=== PATIENT | female | born 2000 | race Caucasian/White ===

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

== ENCOUNTER → 2018-04-03 | Outpatient (CLI) | payer OTHER ==
[2018-04-03 21:42] LABS: HCG, SERUM QUANTITATIVE < 1.0 MIU/ML
== END ==
LOC: M LAB 20:31
DX: O99.519 Diseases of the respiratory system complicating pregnancy, unspecified trimester (principal); Z3A.00 Weeks of gestation of pregnancy not specified
CPT/HCPCS: 84702

== ENCOUNTER → 2018-05-13 | Outpatient (REF) | payer OTHER ==
[~2018-05-13] MED LIST: ZOFR4TAB14 PO
[2018-05-13 22:13] LABS: URINE PREG TEST NEGATIVE (NEGATIVE)
== END ==
LOC: M LAB REF 10:10
PROVIDERS: ATTEND Physician Assistant
DX: R11.2 Nausea with vomiting, unspecified (principal)

== ENCOUNTER 2018-05-17 03:51 | Emergency (ER) | payer OTHER ==
[~2018-05-17] VITALS: Ht 160 cm; Wt 82.6 kg
[2018-05-17 04:38] LABS: HEMATOCRIT 42.3 % (36.0-47.0); HEMOGLOBIN 13.8 g/dl (12.0-15.5); MEAN CORPUSCULAR HEMOGLOBIN 29.1 pg (27.0-33.0); MEAN CORPUSCULAR HGB CONC 32.6 g/dl (32.0-36.5); MEAN CORPUSCULAR VOLUME 89.2 fl (80.0-96.0); PLATELET COUNT, AUTOMATED 319 10^3/uL (150-450); RED BLOOD COUNT 4.74 10^6/uL (4.00-5.40); WHITE BLOOD COUNT 12.6 10^3/uL (4.0-10.0)
[2018-05-17 04:50] LABS: HCG, SERUM QUALITATIVE NEGATIVE (NEGATIVE)
[2018-05-17 04:58] LABS: ALBUMIN 3.7 GM/DL (3.2-5.2); ALT/SGPT 17 U/L (12-78); BILIRUBIN,DIRECT < 0.1 MG/DL (0.0-0.2); BILIRUBIN,TOTAL 0.3 MG/DL (0.2-1.0); BLOOD UREA NITROGEN 4 MG/DL (7-18); CALCIUM LEVEL 8.7 MG/DL (8.5-10.1); CARBON DIOXIDE LEVEL 25 MEQ/L (21-32); CHLORIDE LEVEL 108 MEQ/L (98-107); CREATININE FOR GFR 0.79 MG/DL (0.55-1.30); GLUCOSE, FASTING 100 MG/DL (70-100); LIPASE 269 U/L (73-393); POTASSIUM SERUM 3.8 MEQ/L (3.5-5.1); SODIUM LEVEL 141 MEQ/L (136-145); TOTAL PROTEIN 7.6 GM/DL (6.4-8.2)
[2018-05-17 05:00] LABS: EOSINOPHILS 1 % (0-5); LYMPHOCYTES 40 % (16-52); MONOCYTES 3 % (0-8); NEUTROPHILS 56 % (35-75)
[2018-05-17] MEDS ORDERED: NS 1,000 ML IV ONE (05:00)
[2018-05-17 05:01] LABS: PLATELET ESTIMATE NORMAL (NORMAL)
[2018-05-17] MEDS ORDERED: MORPHINE 4 MG/ML 1ML VIAL/SYRINGE (J2270) IV ONE (05:15)
[2018-05-17] MEDS ORDERED: METOCLOPRAMIDE INJ 10MG/2ML VIAL (J2765) IV ONE (05:15)
[2018-05-17] MEDS ORDERED: GASTROGRAFIN SOLUTION 30ML (Q9963) As Ordered ONE (05:24)
[2018-05-17] MEDS: GASTROGRAFIN SOLUTION 30ML PO SCH ×2 (05:30→06:00)
[2018-05-17 05:44] LABS: APPEARANCE, URINE HAZY (CLEAR); BACTERIA, URINE AUTO NEGATIVE (NEGATIVE); BILIRUBIN, URINE AUTO NEGATIVE (NEGATIVE); BLOOD, URINE BLOOD NEGATIVE (NEGATIVE); COLOR, URINE YELLOW (YELLOW); GLUCOSE, URINE (UA) AUTO NEGATIVE (NEGATIVE); KETONE, URINE AUTO NEGATIVE (NEGATIVE); LEUKOCYTE ESTERASE, URINE AUTO NEGATIVE (NEGATIVE); MUCUS, URINE SMALL (NEGATIVE); NITRITE, URINE AUTO NEGATIVE (NEGATIVE); PROTEIN, URINE AUTO NEGATIVE (NEGATIVE); RBC, URINE AUTO 1 /HPF (0-3); SPECIFIC GRAVITY URINE AUTO 1.017 (1.002-1.035); SQUAMOUS EPITHELIAL CELL UR AU 1 /HPF (0-6); WBC, URINE AUTO 5 /HPF (0-3)
[2018-05-17] MEDS ORDERED: ISOVUE-370 76% 100ML VIAL (Q9967) As Ordered ONE (06:35)
--- NOTE | 2018-05-17 07:58 | REPVR ---
EXAM: CT Abdomen and Pelvis With Contrast EXAM DATE/TIME: 05/17/2018 7:00 AM CLINICAL HISTORY: 17 years old, female; Pain; Abdominal pain TECHNIQUE: Axial computed tomography images of the abdomen and pelvis with intravenous contrast. All CT scans at this facility use at least one of these dose optimization techniques: automated exposure control; mA and/or kV adjustment per patient size (includes targeted exams where dose is matched to clinical indication); or iterative reconstruction. Coronal and sagittal reformatted images were created and reviewed. CONTRAST: 100 ml of iso 370 administered intravenously. COMPARISON: No relevant prior studies available. FINDINGS: Lower thorax: Bibasilar atelectasis. Mild bibasilar atelectasis. ABDOMEN: Liver: Mild diffuse fatty infiltration of liver. Gallbladder and bile ducts: Normal. No calcified stones. No ductal dilation. Pancreas: Normal. No ductal dilation. Spleen: Normal. No splenomegaly. Adrenals: Normal. No mass. Kidneys and ureters: Normal. No hydronephrosis. Stomach and bowel: Sigmoid and descending colon are not well distended and appears to be thickened likely secondary to nondistention. No bowel dilatation or obstruction. Appendix: Normal appendix. PELVIS: Bladder: Unremarkable as visualized. Reproductive: Retroverted uterus. ABDOMEN and PELVIS: Intraperitoneal space: Small free fluid in the pelvis. Bones/joints: No acute fracture. No dislocation. Soft tissues: Unremarkable. Vasculature: Normal. No abdominal aortic aneurysm. Lymph nodes: Normal. No enlarged lymph nodes. IMPRESSION: Mild fatty filtration of liver. Normal appendix. Small free fluid in the pelvis likely physiologic. Electronically signed by: Viola Otto On 05/17/2018 07:57:59 AM
[2018-05-17 08:24] VITALS: BP 113/63
== END 2018-05-17 08:24 | disposition home or self-care (01) ==
LOC: M ED 03:51
DX: R10.9 Unspecified abdominal pain (principal); F17.200 Nicotine dependence, unspecified, uncomplicated
CPT/HCPCS: 36415; 74177; 80048; 80076; 81001; 83690; 84703; 85025; 87086; 96374; 96375; 99284; J2270; J2765; Q9967

== ENCOUNTER 2018-07-22 19:58 | Emergency (ER) | payer OTHER ==
[~2018-07-22] VITALS: Ht 157.5 cm; Wt 85.9 kg
[2018-07-22] MEDS ORDERED: metroNIDAZOLE (FLAGYL) 500 MG TAB PO ONE (21:45)
[2018-07-22] MEDS ORDERED: cefTRIAXone SOD 250 MG VIAL (J0696) IM ONE (21:45)
[2018-07-22] MEDS ORDERED: LIDOCAINE 1% SDV 5 ML VIAL DILUENT ONE (21:45)
[2018-07-22] MEDS ORDERED: AZITHROMYCIN 250 MG TAB PO ONE (21:45)
[2018-07-22 22:20] VITALS: BP 114/66
[2018-07-22 23:45] LABS: CHLAMYDIA DNA AMPLIFICATION NEGATIVE (NEGATIVE); GC DNA AMPLIFICATION NEGATIVE (NEGATIVE)
== END 2018-07-22 22:22 | disposition home or self-care (01) ==
LOC: M ED 19:58
DX: Z20.2 Contact with and (suspected) exposure to infections with a predominantly sexual mode of transmission (principal); F17.200 Nicotine dependence, unspecified, uncomplicated
CPT/HCPCS: 81025; 87661; 96372; 99284; J0696

== ENCOUNTER → 2019-03-05 | Outpatient (REF) | payer OTHER ==
[2019-03-05 16:52] LABS: URINE PREG TEST POSITIVE (NEGATIVE)
== END ==
LOC: M LAB REF 09:03
PROVIDERS: ATTEND Physician Assistant Medical
DX: Z32.01 Encounter for pregnancy test, result positive (principal)

== ENCOUNTER → 2019-05-09 | Outpatient (CLI) | payer OTHER ==
[2019-05-09 16:54] LABS: BASO % 0.3 % (0.0-1.0); EOS # 0.1 10^3/uL (0.0-0.5); EOS % 0.6 % (0.0-3.0); HEMOGLOBIN 12.7 g/dl (12.0-15.5); LYMPH % 21.1 % (24.0-44.0); MEAN CORPUSCULAR HEMOGLOBIN 29.1 pg (27.0-33.0); MEAN CORPUSCULAR HGB CONC 32.6 g/dl (32.0-36.5); MEAN CORPUSCULAR VOLUME 89.4 fl (80.0-96.0); MONO # 0.5 10^3/uL (0.0-0.8); MONO % 3.6 % (0.0-5.0); NEUTROPHILS # 10.3 10^3/uL (1.5-8.5); NEUTROPHILS % 73.9 % (36.0-66.0); PLATELET COUNT, AUTOMATED 303 10^3/uL (150-450); RED BLOOD COUNT 4.36 10^6/uL (4.00-5.40)
[2019-05-09 18:14] LABS: CHLAMYDIA DNA AMPLIFICATION NEGATIVE (NEGATIVE); GC DNA AMPLIFICATION NEGATIVE (NEGATIVE)
[2019-05-10 10:35] LABS: HIV 1&2 SCREEN CENTAUR NEGATIVE (NEGATIVE); RUBELLA IgG QUALITATIVE IMMUNE (IMMUNE)
[2019-05-13 10:52] LABS: HEPATITIS B SURFACE ANTIGEN NEGATIVE (NEGATIVE); HEPATITIS C VIRUS ABY INDEX 0.2 INDEX (<0.8)
== END ==
LOC: M LAB 15:18
PROVIDERS: ATTEND Advanced Practice Midwife
DX: Z34.80 Encounter for supervision of other normal pregnancy, unspecified trimester (principal); Z3A.11 11 weeks gestation of pregnancy

== ENCOUNTER → 2019-06-17 | Outpatient (CLI) | payer OTHER ==
[~2019-06-17] MED LIST changes: +M-NA1TAB; +ONDA4TAB6
== END ==
LOC: M LDO 22:00
PROVIDERS: ATTEND Advanced Practice Midwife
DX: O21.9 Vomiting of pregnancy, unspecified (principal); Z20.89 Contact with and (suspected) exposure to other communicable diseases; Z3A.20 20 weeks gestation of pregnancy

== ENCOUNTER → 2019-06-17 | Outpatient (CLI) | payer OTHER ==
--- NOTE | 2019-06-17 12:28 | REP ---
Obstetric ultrasound for anatomy: There is a single intrauterine gestation in a vertex presentation. There is movement and cardiac activity. The heart rate is 150 beats per minute. The placenta is anterior. There is no placenta previa or abruptio. The placenta is grade zero. The amniotic fluid volume subjectively appears to be normal. The cervix measures 3.7 cm length. Gestational age by today's ultrasound is 20 weeks 3 days/MERRY 11/01/2019. Gestational age by LMP is 20 weeks 6 days/MERRY 10/29/2019. weight is 306 grams/0 pounds, 13 ounces. This is the 32nd percentile for 20-week 6 days. The following anatomic structures are identified and are unremarkable: Cranium, choroid plexus, cavum septum pellucidum, posterior fossa, upper lip, lungs, four-chamber heart, left cardiac ventricular outflow tract, diaphragm, stomach, cord insertion, three-vessel cord, kidneys, bladder, spine and upper lower extremities. Suboptimally demonstrated because of position are the facial profile and the cardiac right ventricular outflow tract. A followup study dedicated to these structures might be considered. Electronically Signed by Luis Alfredo Santizo MD 06/17/2019 12:20 P
== END ==
LOC: M RAD 11:28
PROVIDERS: ATTEND Specialist
DX: Z34.92 Encounter for supervision of normal pregnancy, unspecified, second trimester (principal); Z3A.20 20 weeks gestation of pregnancy

== ENCOUNTER → 2019-07-27 | Outpatient (CLI) | payer OTHER ==
--- NOTE | 2019-07-27 18:01 | REP ---
Clinical: Anatomical evaluation. Comparison: 06/17/2019 . Findings: Examination demonstrates a single live intrauterine in variable presentation. motion is identified by technologist. Placenta is noted anterior and grade I without evidence for placenta previa or abruption. Amniotic fluid volume is normal. Cervix measures 3.1 cm in length and appears closed. No evidence for nuchal cord. Gestational age by LMP 26 weeks 4 days with MERRY 10/29/2019 . Gestational age by current measurements 25 weeks 5 days with MERRY 11/04/2019 . FHR equals 146 beats per minute. Estimated weight 808 grams ( 14th percentile). Anatomical assessment demonstrates normal structures including cranium, facial features, lungs, four-chamber heart/ventricular outflow tracts, diaphragm, stomach, cord insertion/three-vessel cord, and kidneys/bladder. Impression: Single live intrauterine in variable presentation demonstrating appropriate interval growth. In conjunction with prior examination anatomical assessment is complete and normal. Electronically Signed by Jamison Donovan MD 07/27/2019 05:53 P
== END ==
LOC: M WHC 11:08
PROVIDERS: ATTEND Obstetrics & Gynecology
DX: Z34.02 Encounter for supervision of normal first pregnancy, second trimester (principal); Z3A.25 25 weeks gestation of pregnancy

== ENCOUNTER → 2019-08-09 | Outpatient (CLI) | payer OTHER ==
--- NOTE | 2019-08-09 12:13 | REP ---
OB ULTRASOUND: Real-time sonographic evaluation of the gravid uterus performed. There is a single living intrauterine gestation. The estimated gestational age is 28 weeks 3 days, with EDC 10/29/2019. Today's measurements indicate appropriate growth. Biometry and Growth: BPD 73 mm = 29 weeks 2 days, 69th percentile HC 260 mm = 28 weeks 2 days, 47th percentile AC 226 mm = 27 weeks 0 days, 21st percentile FL 51 mm = 27 weeks 3 days, 30th percentile HC/AC ratio 1.15 within normal range of 0.99 to 1.18. Estimated weight 1072 grams at the 20th percentile. Cervical length: Closed and measures 4.1 cm in length. heart rate: 146 beats per minute. position: Vertex. Placenta: Anterior and grade 2 with no previa or abruption. Amniotic fluid: Within normal limits. AVINASH 15.6 within normal range of 9.3 to 22.9. S/D ratio in the mid umbilical artery is 2.36, normal range is 2.56 to 3.80. RI: 0.58, normal range is 0.59 to 0.75. Visualized anatomy today includes four-chamber heart, stomach, cord insertion, three-vessel cord, kidneys and bladder, which are grossly unremarkable.
== END ==
LOC: M WHC 10:39
PROVIDERS: ATTEND Advanced Practice Midwife
DX: Z34.92 Encounter for supervision of normal pregnancy, unspecified, second trimester (principal)

== ENCOUNTER → 2019-08-09 | Outpatient (REF) | payer OTHER ==
[2019-08-09 17:43] LABS: HEMATOCRIT 37.5 % (36.0-47.0); HEMOGLOBIN 12.3 g/dl (12.0-15.5); MEAN CORPUSCULAR HEMOGLOBIN 30.9 pg (27.0-33.0); MEAN CORPUSCULAR HGB CONC 32.8 g/dl (32.0-36.5); MEAN CORPUSCULAR VOLUME 94.2 fl (80.0-96.0); PLATELET COUNT, AUTOMATED 315 10^3/uL (150-450); RED BLOOD COUNT 3.98 10^6/uL (4.00-5.40); WHITE BLOOD COUNT 15.8 10^3/uL (4.0-10.0)
== END ==
LOC: M PLALAB 11:27
PROVIDERS: ATTEND Obstetrics & Gynecology
DX: Z34.82 Encounter for supervision of other normal pregnancy, second trimester (principal); Z3A.24 24 weeks gestation of pregnancy

== ENCOUNTER → 2019-09-29 | Outpatient (REF) | payer OTHER | LOC: M SFHCWAGY 16:57 | PROVIDERS: ATTEND Advanced Practice Midwife | DX: O99.333 Smoking (tobacco) complicating pregnancy, third trimester (principal) ==

== ENCOUNTER 2019-10-11 12:39 | Inpatient (IN) | payer OTHER ==
[~2019-10-11] VITALS: Ht 157.5 cm; Wt 91.6 kg
[2019-10-11] VITALS (10 sets, daily range): BP systolic 109–133; BP diastolic 61–84
[2019-10-11 13:55] LABS: HEMATOCRIT 39.8 % (36.0-47.0); HEMOGLOBIN 13.2 g/dl (12.0-15.5); MEAN CORPUSCULAR HEMOGLOBIN 29.6 pg (27.0-33.0); MEAN CORPUSCULAR HGB CONC 33.2 g/dl (32.0-36.5); MEAN CORPUSCULAR VOLUME 89.2 fl (80.0-96.0); PLATELET COUNT, AUTOMATED 287 10^3/uL (150-450); RED BLOOD COUNT 4.46 10^6/uL (4.00-5.40); WHITE BLOOD COUNT 12.9 10^3/uL (4.0-10.0)
[2019-10-11 14:26] LABS: ALT/SGPT 12 U/L (12-78); BILIRUBIN,TOTAL 0.3 MG/DL (0.2-1.0); CREATININE FOR GFR 0.47 MG/DL (0.55-1.30); GLOMERULAR FILTRATION RATE > 60.0 (>60); LDH LACTATE DEHYDROGENASE 157 U/L (84-246)
[2019-10-11 14:38] LABS: CREATININE,RANDOM URINE 17.8 MG/DL; TOTAL PROTEIN,RANDOM URINE 11.5 MG/DL (0.0-12.0)
[2019-10-11] MEDS: miSOPROStol 50 MCG 1/2 TAB (S0191) SL SCH ×3 (15:09→23:27)
[2019-10-12] VITALS (37 sets, daily range): BP systolic 121–163; BP diastolic 62–110
[2019-10-12] MEDS: miSOPROStol 50 MCG 1/2 TAB (S0191) SL SCH (03:25)
[2019-10-12] MEDS ORDERED: OXYTOCIN DRIP 30 UNITS in IV 1 EA IV SCH ×2 (08:30→17:32)
[2019-10-12] MEDS: LR 1,000 ML IV SCH ×2 (08:50→15:16)
[2019-10-12] MEDS ORDERED: FENTANYL 2MCG/ML ROPIVACAINE 0.2% IN 0.9% NACL 100ML IVBAG As Ordered ONE (15:10)
[2019-10-12] MEDS ORDERED: EPIDURAL COMMENT XX SCH (16:30)
[2019-10-12] MEDS ORDERED: REFRIGERATOR IV KEYS XX PRN (16:30)
[2019-10-12] MEDS ORDERED: FENTANYL/ROPIVACAINE/NACL BAG 100 ML EPIDURAL SCH (16:30)
[2019-10-12] MEDS ORDERED: diphenhydrAMINE 50MG/ML VIAL (J1200) IV PRN (16:30)
[2019-10-12] MEDS ORDERED: LACTATED RINGER'S 1000 ML IV PRN (16:30)
[2019-10-12] MEDS ORDERED: ePHEDrine SULFATE 25 MG/5 ML(5MG/ML) SYRINGE IV PRN (16:30)
[2019-10-12] MEDS ORDERED: NALOXONE INJ 0.4MG/1ML VIAL (J2310 PER 1MG) IV PRN (16:30)
[2019-10-12] MEDS ORDERED: EPIDURAL/PCA KEYS XX PRN (16:30)
[2019-10-12] MEDS ORDERED: ONDANSETRON 4MG/2ML VIAL IV PRN (16:30)
[2019-10-12] MEDS ORDERED: IBUPROFEN 800 MG TAB PO PRN (17:45)
[2019-10-12] MEDS ORDERED: DIBUCAINE 1% OINTMENT 30GM TOP PRN (17:45)
[2019-10-12] MEDS ORDERED: ACETAMINOPHEN 500 MG TAB PO PRN (17:45)
[2019-10-12] MEDS ORDERED: MEASLES,MUMPS,RUBELLA VACCINE INJ (MMR-II) (90707) SC SCH (17:45)
[2019-10-12] MEDS ORDERED: RHOGAM 300 MCG (1500 IU) INJ (J2790) IM SCH (17:45)
[2019-10-12] MEDS ORDERED: ACETAMINOPHEN TAB 650MG DOSE (2X325MG) PO PRN (17:45)
[2019-10-12] MEDS ORDERED: DOCUSATE SODIUM 100 MG CAP PO PRN (17:45)
[2019-10-12] MEDS ORDERED: IBUPROFEN 600 MG TAB PO PRN (17:45)
[2019-10-12] MEDS ORDERED: SLF 3 ML SYR IV PRN (18:30)
[2019-10-12] MEDS: SLF 3 ML SYR IV SCH (22:00)
[2019-10-13 06:00] VITALS: BP 136/75
[2019-10-13] MEDS: SLF 3 ML SYR IV SCH (06:09)
--- NOTE | 2019-10-13 07:39 | DN ---
DATE OF DELIVERY: 10/12/2019 Eliza is a 19-year-old, 1, para 1-0-0-1 now, who was admitted to labor and delivery for induction of labor due to gestational hypertension. Misoprostol, Cook catheter Romero and IV Pitocin was used and labor did ensue. She utilized an epidural for labor coping. She had spontaneous rupture of membranes for clear fluid at 1206. She reached complete dilation at 1655. She pushed to a normal spontaneous vaginal delivery of a live male in right occiput anterior (TAMARA) position with restitution to right occiput transverse (ROT) position at 1709. There was a nuchal cord x1 loose that was reduced manually at the time of delivery. The shoulders delivered spontaneously and the corpus immediately followed. The was placed on the maternal abdomen crying and active. Mouth and nares were bulb suctioned. The cord was clamped x2 and cut by the father of the baby under my direction. Spontaneous expulsion of an intact placenta with three-vessel cord by Davis mechanism was at 1714. Uterine hemostasis achieved with IV Pitocin rapid infusion and uterine fundal massage. Estimated blood loss 150 mL. Perineum and vagina inspected and noted to have a first-degree midline laceration, the laceration repaired with #3-0 Rapide in the usual fashion. The male weighed 2480 grams or 5 pounds 7 ounces. Apgars 8 and 9. Mom is going to bottle feed her son and the family have named him Suyapa. At the close of delivery, lap counts, needle counts and instrument counts were correct and verified.
[2019-10-13] MEDS: PRENATAL VITAMINS CHEWABLE TABLET PO SCH (08:42)
[2019-10-13 18:31] VITALS: BP 134/69
[2019-10-14 06:00] VITALS: BP 124/71
[2019-10-14] MEDS ORDERED: ACET-683 PO (06:46)
[2019-10-14] MEDS: PRENATAL VITAMINS CHEWABLE TABLET PO SCH (09:28)
== END 2019-10-14 11:20 | disposition home or self-care (01) | DRG 560 ==
LOC: M LDI 12:39 → M OBS 10-12 19:52
PROVIDERS: ADMIT Specialist; ATTEND Specialist
PROC: 3E0P7VZ Introduction of Hormone into Female Reproductive, Via Natural or Artificial Opening (ICD-10-PCS; 2019-10-11)
PROC: 3E033VJ Introduction of Other Hormone into Peripheral Vein, Percutaneous Approach (ICD-10-PCS; 2019-10-11)
PROC: 10E0XZZ Delivery of Products of Conception, External Approach (ICD-10-PCS; principal; 2019-10-12)
PROC: 0HQ9XZZ Repair Perineum Skin, External Approach (ICD-10-PCS; 2019-10-12)
DX: O13.4 Gestational [pregnancy-induced] hypertension without significant proteinuria, complicating childbirth (principal); O69.81X0 Labor and delivery complicated by cord around neck, without compression, not applicable or unspecified; Z37.0 Single live birth; Z3A.39 39 weeks gestation of pregnancy; O70.0 First degree perineal laceration during delivery

== ENCOUNTER 2023-05-11 09:32 | Emergency (ER) | payer OTHER ==
[~2023-05-11] VITALS: Ht 157.5 cm; Wt 86.4 kg
[~2023-05-11 09:32] MED LIST changes: +ACET-683 PO
[2023-05-11 09:45] VITALS: TEMP 97.1
[2023-05-11] MEDS ORDERED: IBUP200T46 PO (09:50)
[2023-05-11 10:42] LABS: BASO % 0.4 % (0.0-1.0); EOS # 0.1 10^3/uL (0.0-0.5); EOS % 0.5 % (0.0-3.0); HEMATOCRIT 37.3 % (36.0-47.0); HEMOGLOBIN 12.3 g/dl (12.0-15.5); LYMPH # 1.8 10^3/uL (1.5-5.0); LYMPH % 18.8 % (24.0-44.0); MEAN CORPUSCULAR HEMOGLOBIN 29.6 pg (27.0-33.0); MEAN CORPUSCULAR VOLUME 89.9 fl (80.0-96.0); MONO # 0.4 10^3/uL (0.0-0.8); MONO % 4.4 % (2.0-8.0); NEUTROPHILS # 7.2 10^3/uL (1.5-8.5); NEUTROPHILS % 75.5 % (36.0-66.0); PLATELET COUNT, AUTOMATED 253 10^3/uL (150-450); RED BLOOD COUNT 4.15 10^6/uL (4.00-5.40); WHITE BLOOD COUNT 9.6 10^3/uL (4.0-10.0)
[2023-05-11 10:56] VITALS: BP 112/61; O2SAT 100
[2023-05-11 11:00] LABS: APPEARANCE, URINE CLOUDY (CLEAR); BACTERIA, URINE AUTO NEGATIVE (NEGATIVE); BILIRUBIN, URINE AUTO NEGATIVE (NEGATIVE); BLOOD, URINE BLOOD 3+ (NEGATIVE); COLOR, URINE RED (YELLOW); GLUCOSE, URINE (UA) AUTO NEGATIVE (NEGATIVE); KETONE, URINE AUTO NEGATIVE (NEGATIVE); LEUKOCYTE ESTERASE, URINE AUTO TRACE (NEGATIVE); MUCUS, URINE SMALL (NEGATIVE); NITRITE, URINE AUTO NEGATIVE (NEGATIVE); PROTEIN, URINE AUTO 2+ mg/dL (NEGATIVE); RBC, URINE AUTO TNTC /HPF (0-3); SPECIFIC GRAVITY URINE AUTO 1.018 (1.002-1.035); SQUAMOUS EPITHELIAL CELL UR AU 8 /HPF (0-6); UROBILINOGEN, URINE AUTO 0.2 mg/dL (0.0-2.0); WBC, URINE AUTO 0 /HPF (0-3)
== END 2023-05-11 12:35 | disposition left against medical advice (07) ==
LOC: M ED 09:32 → EDBD 09:32 → M ED 12:35
DX: O03.9 Complete or unspecified spontaneous abortion without complication (principal); Z53.29 Procedure and treatment not carried out because of patient's decision for other reasons; F17.290 Nicotine dependence, other tobacco product, uncomplicated; Z79.1 Long term (current) use of non-steroidal anti-inflammatories (NSAID); Z79.899 Other long term (current) drug therapy

== ENCOUNTER → 2024-03-14 | Outpatient (CLI) | payer OTHER ==
[~2024-03-14] MED LIST changes: +IBUP200T46 PO; +ONDA-282; -ONDA4TAB6
[2024-03-14 13:43] LABS: HEMATOCRIT 39.9 % (36.0-47.0); MEAN CORPUSCULAR HEMOGLOBIN 28.2 pg (27.0-33.0); MEAN CORPUSCULAR HGB CONC 32.6 g/dl (32.0-36.5); MEAN CORPUSCULAR VOLUME 86.6 fl (80.0-96.0); PLATELET COUNT, AUTOMATED 298 10^3/uL (150-450); RED BLOOD COUNT 4.61 10^6/uL (4.00-5.40); WHITE BLOOD COUNT 10.7 10^3/uL (4.0-10.0)
[2024-03-14 14:09] LABS: URIC ACID 2.7 MG/DL (3.1-7.8)
[2024-03-14 14:11] LABS: LDH LACTATE DEHYDROGENASE 129 U/L (120-246)
[2024-03-14 14:12] LABS: ALT/SGPT 23 U/L (7.0-40); AST/SGOT 9 U/L (<34); BILIRUBIN,TOTAL 0.5 MG/DL (0.3-1.2); CREATININE FOR GFR 0.54 MG/DL (0.55-1.30); GLOMERULAR FILTRATION RATE > 60.0 (>60)
[2024-03-14 14:38] LABS: HIV 1&2 SCREEN NEGATIVE (NEGATIVE)
[2024-03-14 14:47] LABS: HEPATITIS C VIRUS ABY INDEX < 0.02 INDEX (<0.8)
== END ==
LOC: M PLALAB 10:25
PROVIDERS: ATTEND Advanced Practice Midwife
DX: Z34.81 Encounter for supervision of other normal pregnancy, first trimester (principal)

== ENCOUNTER → 2024-03-14 | Outpatient (REF) | payer OTHER | LOC: M PLALAB 10:08 | PROVIDERS: ATTEND Advanced Practice Midwife | DX: Z34.81 Encounter for supervision of other normal pregnancy, first trimester (principal) ==

== ENCOUNTER → 2024-04-12 | Outpatient (REF) | payer OTHER ==
[2024-04-12 14:07] LABS: TOTAL PROTEIN,RANDOM URINE 29.3 MG/DL (0.0-14.0)
[2024-04-12 14:11] LABS: CREATININE,RANDOM URINE 183.3 MG/DL
[2024-04-12 15:07] LABS: GC DNA AMPLIFICATION NEGATIVE (NEGATIVE)
== END ==
LOC: M PLALAB 10:46
PROVIDERS: ATTEND Advanced Practice Midwife
DX: Z34.81 Encounter for supervision of other normal pregnancy, first trimester (principal)

== ENCOUNTER → 2024-05-17 | Outpatient (REF) | payer OTHER | LOC: M PLALAB 13:02 | PROVIDERS: ATTEND Nurse Practitioner Family | DX: Z34.80 Encounter for supervision of other normal pregnancy, unspecified trimester (principal) ==

== ENCOUNTER → 2024-05-20 | Outpatient (CLI) | payer OTHER | LOC: M WHC 12:47 | PROVIDERS: ATTEND Nurse Practitioner Family | DX: Z34.82 Encounter for supervision of other normal pregnancy, second trimester (principal); Z3A.21 21 weeks gestation of pregnancy ==

== ENCOUNTER → 2024-06-14 | Outpatient (CLI) | payer OTHER ==
[2024-06-14 15:01] LABS: HEMATOCRIT 34.9 % (36.0-47.0); HEMOGLOBIN 11.3 g/dl (12.0-15.5); MEAN CORPUSCULAR HEMOGLOBIN 28.5 pg (27.0-33.0); MEAN CORPUSCULAR HGB CONC 32.4 g/dl (32.0-36.5); MEAN CORPUSCULAR VOLUME 87.9 fl (80.0-96.0); PLATELET COUNT, AUTOMATED 303 10^3/uL (150-450); RED BLOOD COUNT 3.97 10^6/uL (4.00-5.40); WHITE BLOOD COUNT 14.2 10^3/uL (4.0-10.0)
[2024-06-14 15:27] LABS: PERCENT SATURATION 10.1 % (13.2-45.0)
[2024-06-14 15:30] LABS: FERRITIN 5.9 NG/ML (7.3-270.7)
== END ==
LOC: M PLALAB 12:33
PROVIDERS: ATTEND Nurse Practitioner Family
DX: Z34.80 Encounter for supervision of other normal pregnancy, unspecified trimester (principal); Z3A.00 Weeks of gestation of pregnancy not specified

== ENCOUNTER → 2024-07-21 | Outpatient (CLI) | payer OTHER | LOC: M WHC 09:04 | PROVIDERS: ATTEND Nurse Practitioner Family | DX: O44.20 Partial placenta previa NOS or without hemorrhage, unspecified trimester (principal); Z3A.30 30 weeks gestation of pregnancy ==

== ENCOUNTER → 2024-07-21 | Outpatient (CLI) | payer OTHER ==
[2024-07-21 14:01] LABS: GLUCOSE CHALLENGE TEST 1 HOUR 190 MG/DL (LESS THAN 140)
[2024-07-21 14:31] LABS: HIV 1&2 SCREEN NEGATIVE (NEGATIVE)
[2024-07-21 14:38] LABS: HEPATITIS C VIRUS ABY INDEX 0.03 INDEX (<0.8)
[2024-07-21 15:33] LABS: GC DNA AMPLIFICATION NEGATIVE (NEGATIVE)
[2024-07-22 12:53] LABS: Trichomonas vaginalis (AMP) NOT DETECTED (NEGATIVE)
== END ==
LOC: M PLALAB 09:43
PROVIDERS: ATTEND Nurse Practitioner Family
DX: Z34.80 Encounter for supervision of other normal pregnancy, unspecified trimester (principal)

== ENCOUNTER → 2024-08-31 | Outpatient (REF) | payer OTHER | LOC: M LAB REF 16:55 | PROVIDERS: ATTEND Physician Assistant | DX: B34.9 Viral infection, unspecified (principal) ==

== ENCOUNTER → 2024-09-07 | Outpatient (REF) | payer OTHER | LOC: M SFHCWAGY 13:07 | PROVIDERS: ATTEND Obstetrics & Gynecology | DX: Z36.85 Encounter for antenatal screening for Streptococcus B (principal); Z3A.36 36 weeks gestation of pregnancy ==

== ENCOUNTER → 2024-09-14 | Outpatient (CLI) | payer OTHER ==
[~2024-09-14] MED LIST changes: +ASPI81CH33 PO; +FERR325T3 PO; +OMEP10CASR PO; +PRENTAB9 PO; +TUMS750C5 PO
[2024-09-14 17:32] LABS: HEMATOCRIT 35.8 % (36.0-47.0); MEAN CORPUSCULAR HEMOGLOBIN 24.3 pg (27.0-33.0); MEAN CORPUSCULAR HGB CONC 30.7 g/dl (32.0-36.5); PLATELET COUNT, AUTOMATED 297 10^3/uL (150-450); RED BLOOD COUNT 4.53 10^6/uL (4.00-5.40); WHITE BLOOD COUNT 10.3 10^3/uL (4.0-10.0)
[2024-09-14 17:52] LABS: LDH LACTATE DEHYDROGENASE 187 U/L (120-246)
[2024-09-14 17:53] LABS: ALT/SGPT 19 U/L (7.0-40); AST/SGOT 17 U/L (<34); BILIRUBIN,TOTAL 0.4 MG/DL (0.3-1.2); CREATININE FOR GFR 0.56 MG/DL (0.55-1.30); GLOMERULAR FILTRATION RATE > 90.0 (>60)
[2024-09-14 17:56] LABS: TOTAL PROTEIN,RANDOM URINE 92.8 MG/DL (0.0-14.0)
[2024-09-14 17:58] LABS: URIC ACID 2.7 MG/DL (3.1-7.8)
== END ==
LOC: M PLALAB 11:17
PROVIDERS: ATTEND Nurse Practitioner Family
DX: O16.9 Unspecified maternal hypertension, unspecified trimester (principal)

== ENCOUNTER → 2024-09-14 | Outpatient (REF) | payer OTHER | LOC: M PLALAB 10:51 | PROVIDERS: ATTEND Nurse Practitioner Family | DX: Z53.20 Procedure and treatment not carried out because of patient's decision for unspecified reasons (principal) ==

== ENCOUNTER → 2025-01-26 | Outpatient (REF) | payer OTHER ==
[~2025-01-26] MED LIST changes: +IBUP80TA PO
== END ==
LOC: M PLALAB 12:14
PROVIDERS: ATTEND Advanced Practice Midwife
DX: Z12.4 Encounter for screening for malignant neoplasm of cervix (principal)